=== PATIENT | female | born 2000 | race Caucasian/White ===

== ENCOUNTER 2018-07-18 13:59 | Inpatient (IN) | payer OTHER ==
[~2018-07-18] VITALS: Ht 157.5 cm; Wt 122.0 kg
[2018-08-05] MEDS ORDERED: PRENATABS RX T1 EACH PO (12:12)
== END 2018-08-07 13:51 | disposition home or self-care (01) | DRG 775 ==
LOC: LDR 08-05 12:00 → OB/GYN 08-05 15:09
PROC: 10E0XZZ Delivery of Products of Conception, External Approach (ICD-10-PCS; principal; 2018-08-05)
PROC: 4A1HXCZ Monitoring of Products of Conception, Cardiac Rate, External Approach (ICD-10-PCS; 2018-08-05)
PROC: 4A033R1 Measurement of Arterial Saturation, Peripheral, Percutaneous Approach (ICD-10-PCS; 2018-08-05)
DX: O80 Encounter for full-term uncomplicated delivery (principal); Z3A.37 37 weeks gestation of pregnancy; Z37.0 Single live birth

== ENCOUNTER 2022-01-22 08:58 | Inpatient (IN) | payer OTHER ==
[~2022-01-22] VITALS: Ht 157.5 cm; Wt 52.6 kg
[~2022-01-22 08:58] MED LIST: PRENATABS RX T1 EACH PO
== END 2022-02-02 11:46 | disposition home or self-care (01) | DRG 833 ==
LOC: OB/GYN 08:58
PROVIDERS: ADMIT Obstetrics & Gynecology; ATTEND Obstetrics & Gynecology
PROC: 4A1HXCZ Monitoring of Products of Conception, Cardiac Rate, External Approach (ICD-10-PCS; principal; 2022-01-22)
DX: O99.013 Anemia complicating pregnancy, third trimester (principal); Z3A.37 37 weeks gestation of pregnancy; D51.0 Vitamin B12 deficiency anemia due to intrinsic factor deficiency; Z20.822 Contact with and (suspected) exposure to COVID-19

== ENCOUNTER 2022-02-13 07:23 | Inpatient (IN) | payer OTHER ==
[~2022-02-13] VITALS: Ht 154.9 cm; Wt 52.2 kg
[2022-02-13] MEDS ORDERED: FOLIC ACID0.4 MG (09:10)
[2022-02-13] MEDS ORDERED: IRON 100-VITAM1 EACH (09:11)
== END 2022-02-15 17:07 | disposition home or self-care (01) | DRG 807 ==
LOC: LDR 07:23 → OB/GYN 10:46
PROVIDERS: ADMIT Obstetrics & Gynecology; ATTEND Obstetrics & Gynecology
PROC: 10E0XZZ Delivery of Products of Conception, External Approach (ICD-10-PCS; principal; 2022-02-13)
PROC: 4A1HXCZ Monitoring of Products of Conception, Cardiac Rate, External Approach (ICD-10-PCS; 2022-02-13)
DX: O80 Encounter for full-term uncomplicated delivery (principal); Z37.0 Single live birth; Z3A.39 39 weeks gestation of pregnancy; Z20.822 Contact with and (suspected) exposure to COVID-19

== ENCOUNTER 2022-12-10 08:42 | Emergency (ER) | payer OTHER ==
[~2022-12-10] VITALS: Ht 154.9 cm; Wt 453.6 kg
[~2022-12-10 08:42] MED LIST changes: +FOLIC ACID0.4 MG; +IRON 100-VITAM1 EACH
== END 2022-12-10 13:19 | disposition home or self-care (01) ==
LOC: ER 08:42
DX: O03.9 Complete or unspecified spontaneous abortion without complication (principal)

== ENCOUNTER 2023-05-17 08:04 | Outpatient (CLI) | payer OTHER | END 2023-05-17 10:02 | disposition home or self-care (01) | LOC: PRENATAL 08:04 | PROVIDERS: ATTEND Obstetrics & Gynecology Maternal & Fetal Medicine | DX: O36.80X0 Pregnancy with inconclusive fetal viability, not applicable or unspecified (principal); Z3A.14 14 weeks gestation of pregnancy ==

== ENCOUNTER 2023-06-28 08:02 | Outpatient (CLI) | payer OTHER | END 2023-06-28 09:02 | disposition home or self-care (01) | LOC: PRENATAL 08:02 | PROVIDERS: ATTEND Obstetrics & Gynecology Maternal & Fetal Medicine | DX: O35.3XX0 Maternal care for (suspected) damage to fetus from viral disease in mother, not applicable or unspecified (principal); O44.00 Complete placenta previa NOS or without hemorrhage, unspecified trimester; Z3A.20 20 weeks gestation of pregnancy ==

== ENCOUNTER 2023-09-19 08:11 | Outpatient (CLI) | payer OTHER | END 2023-09-19 08:12 | disposition home or self-care (01) | LOC: PRENATAL 08:11 | PROVIDERS: ATTEND Obstetrics & Gynecology Maternal & Fetal Medicine | DX: O26.849 Uterine size-date discrepancy, unspecified trimester (principal); O36.8199 Decreased fetal movements, unspecified trimester, other fetus; Z3A.32 32 weeks gestation of pregnancy ==

== ENCOUNTER 2023-10-17 17:36 | Inpatient (IN) | payer OTHER ==
[~2023-10-17] VITALS: Ht 154.9 cm; Wt 52.2 kg
[2023-10-17] MEDS ORDERED: PRENATAL + DHA1 EAC1 PO (18:08)
[2023-10-17] MEDS ORDERED: FOLIC ACID20 MG PO (18:09)
[2023-10-17 18:32] LABS: URINE APPEARANCE Clear; URINE BILIRRUBIN Negative (NEGATIVE); URINE BLOOD Negative; URINE COLOR Yellow; URINE GLUCOSE Negative (NEGATIVE); URINE LEUKOCYTE Large; URINE NITRATE Negative; URINE PROTEIN Negative (NEGATIVE)
[2023-10-17 18:33] LABS: URINE BACTERIA 2013.2 uL (0.0-1933); URINE EPITHELIAL CELLS 15.4 uL (0.0-38.8); URINE WBC 476.5 uL (0.0-23.2)
[2023-10-17 18:54] LABS: INR 1.02; PARTIAL THROMBOPLASTIN TIME 27.7 SECONDS (22.0-34.0); PROTHROMBIN TIME 10.7 SECONDS (9.0-11.5)
[2023-10-17 19:04] LABS: URINE RBC 0.1 uL (0.0-20.8)
[2023-10-18 07:37] LABS: HEMATOCRIT 28.6 % (36.0-45.00); MEAN CELL VOLUME 77.7 fL (80.00-100.00); MEAN CORPUSCULAR HGB CONC 32.7 g/dl (32.0-36.0); PLATELET COUNT 242 K/uL (150-450); RED BLOOD COUNT 3.68 M/uL (4.00-6.00); RED CELL DISTRIBUTION WIDTH 15.3 % (11.5-14.5)
[2023-10-18 08:01] LABS: MEAN CORPUSCULAR HEMOGLOBIN 25.5 pg (27.00-32.0)
[2023-10-18 08:02] LABS: HEMOGLOBIN 9.4 g/dL (12.0-15.00)
== END 2023-10-19 18:16 | disposition home or self-care (01) | DRG 807 ==
LOC: LDR 17:36 → OB/GYN 10-18 08:39
PROVIDERS: ADMIT Obstetrics & Gynecology; ATTEND Obstetrics & Gynecology
PROC: 10E0XZZ Delivery of Products of Conception, External Approach (ICD-10-PCS; principal; 2023-10-17)
PROC: 4A1HXCZ Monitoring of Products of Conception, Cardiac Rate, External Approach (ICD-10-PCS; 2023-10-17)
DX: O60.14X0 Preterm labor third trimester with preterm delivery third trimester, not applicable or unspecified (principal); Z37.0 Single live birth; Z3A.36 36 weeks gestation of pregnancy; Z20.822 Contact with and (suspected) exposure to COVID-19